=== PATIENT | female | born 1985 | race Caucasian/White ===

== ENCOUNTER 2024-05-12 17:55 | Emergency (ER) | payer BC, SELFPAY ==
[2024-05-12 18:07] VITALS: BP 142/85; PULSE 91; RESP 20; TEMP 36.6; O2SAT 99
--- NOTE | 2024-05-12 18:08 | ED.DENTAL ---
HPI - Dental/Oral General Chief complaint: Dental/Oral Stated complaint: tooth pain Time Seen by Provider: 05/12/24 18:08 Source: patient Mode of arrival: ambulatory Limitations: no limitations History of Present Illness HPI Narrative: Patient is a 39-year-old female who presents the ED with report of dental pain. Patient is currently residing at [facility] for depression, PTSD. She reports she has a broken tooth, #16, that has been problematic for some time. She is scheduled to have it extracted on 05/20. She states over the last few days, she has been having increased pain. She states the remaining fragment of the tooth now feels very loose and wiggly. She has been taking ibuprofen and Tylenol without improvement. Denies difficulty breathing or swallowing, vomiting, fevers. Related Data Allergies Allergy/AdvReac Type Severity Reaction Status Date / Time No Known Allergies Allergy Verified 05/12/24 18:10 Review of Systems Review of Systems: CONSTITUTIONAL: Denies fever, chills, or sweats. ENT: See HPI. RESPIRATORY: Denies dyspnea. All systems reviewed & are unremarkable except as noted in HPI and below Exam Narrative: GENERAL: Well appearing, well-nourished, non-toxic, in no acute distress. HEAD: Normocephalic, atraumatic. ENT: Broken tooth 16. Jagged remaining half fragment. Cavity surrounding fragment. Tenderness to palpation along gumline surrounding tooth, no fluctuance or obvious abscess. No trismus or stridor. No tonsillar hypertrophy or exudate. Uvula midline. RESPIRATORY: Airway patent, respirations nonlabored. No stridor or distress. CARDIOVASCULAR: Regular rate and rhythm MUSCULOSKELETAL: Moves all extremities. No gross deformities. SKIN: Warm, dry, normal color. NEURO: A&O X3. Speech clear PSYCHIATRIC: Appropriate mood and affect. Normal interaction. Course Vital Signs Vital signs: Vital Signs Temperature 98 F 05/12/24 18:07 Pulse Rate 91 05/12/24 18:07 Respiratory Rate 20 05/12/24 18:07 Blood Pressure 142/85 H 05/12/24 18:07 Pulse Oximetry 99 05/12/24 18:07 Oxygen Delivery Room Air 05/12/24 18:07 Temperature 98 F 05/12/24 18:07 Pulse Rate 91 05/12/24 18:07 Respiratory Rate 20 05/12/24 18:07 Blood Pressure 142/85 H 05/12/24 18:07 Pulse Oximetry 99 05/12/24 18:07 Oxygen Delivery Room Air 05/12/24 18:07 MDM - Dental/Oral MDM Narrative Medical decision making narrative: Patient's pain is consistent with dental caries /Dental fracture. There are no focal signs of space-occupying abscess. The patient is controlling secretions well without signs of airway compromise. Patient is felt reasonable for outpatient follow-up with dental evaluation. Will start patient on Augmentin. Given 1 [place] here. Currently residing at [facility]. Advised to continue Tylenol/ibuprofen. Has a follow-up appointment with dentist next week. Given return precautions. Discharged in stable condition. Medical Records Attestation: I reviewed the patient's medical records. Discharge Plan Discharge Clinical Impression: Toothache Fracture of tooth Qualifiers: Encounter type: sequela Fracture type: closed Qualified Code(s): S02.5XXS - Fracture of tooth (traumatic), sequela Patient Disposition: Home, Self-Care Condition: Stable Instructions: Antibiotic Form, Toothache (ED) Additional Instructions: Take antibiotics as prescribed. Continue Tylenol and ibuprofen as needed for pain. Stay well hydrated. Follow-up with dentist for further evaluation. Prescriptions: New amoxicillin-pot clavulanate 875-125 mg tablet 1 tablet PO Q12H 7 Days Qty: 14 0RF Follow-up/Referrals: PHYSICIAN,[facility]TER [Non-Staff] - Time of Disposition: 18:18
[2024-05-12] MEDS: AMOXICILLIN/CLAVULANATE K 875-125 MG TAB 1 TABLET PO (18:23)
[2024-05-12] MEDS: HYDROcodone/acetaminophen (*CRX) 5-325 MG TABLET 1 TAB PO (18:23)
== END 2024-05-12 18:33 | disposition home or self-care (01) ==
LOC: ANHED 18:28
PROVIDERS: Emergency Provider Physician Assistant
DX: S02.5XXS Fracture of tooth (traumatic), sequela (principal); K08.89 Other specified disorders of teeth and supporting structures; F32.A Depression, unspecified
CPT/HCPCS: 99283; A9270